=== PATIENT | female | born 1990 | race Hispanic/Latino ===

== ENCOUNTER 2017-04-16 17:55 | Emergency (ER) | payer OTHER ==
[~2017-04-16] VITALS: Ht 152.4 cm; Wt 49.4 kg
[2017-04-16] MEDS ORDERED: IBUPROFEN 600 MG TAB PO STA (18:34)
--- NOTE | 2017-04-16 19:18 | Diagnostic Imaging Report ---
Two view chest x-ray INDICATION: Cough, chest pain COMPARISON: None. FINDINGS: The cardiomediastinal silhouette is normal. There is no evidence of hilar lymphadenopathy. The pulmonary vascular markings are normal. There is no evidence of focal consolidation or pleural effusion. Evaluation of the osseous structures demonstrates no focal abnormality. IMPRESSION: No active cardiopulmonary disease. Signed by: Dr. Jean Monroy MD on 04/16/2017 7:15 PM
[2017-04-16 19:23] LABS: STREPTOCOCCUS GRP A ANTIGEN NEGATIVE (NEGATIVE)
[2017-04-16 19:38] LABS: INFLUENZAE A&B ANTIGEN (RAPID) NEGATIVE (NEGATIVE)
== END 2017-04-16 21:33 | disposition home or self-care (01) ==
LOC: ER 17:55
DX: R50.9 Fever, unspecified (principal); R05 Cough; J20.9 Acute bronchitis, unspecified
CPT/HCPCS: 71020; 83518; 87070; 87400; 93005; 99283

== ENCOUNTER 2018-04-12 21:16 | Emergency (ER) | payer OTHER ==
[~2018-04-12] VITALS: Ht 152.4 cm; Wt 49.4 kg
--- OUTSIDE RECORDS SUMMARY | 2018-04-12 21:18 | XMS REPORT ---
Author Author [facility] Address Unknown Phone Unavailable Care Team Providers Care Project Eng Name Role Phone Ernesto GALLO Unavailable Unavailable Problems This patient has no known problems. Allergies, Adverse Reactions, Alerts This patient has no known allergies or adverse reactions. Medications This patient has no known medications. Results Test Description Test Time Test Comments Text Results Atomic Results Result Comments CHEST 2 VIEWS [place] [address] Patient Name: DIMITRY BURRIS MR #: [id number] : 1990 Age/Sex: 27/F Req #: [id number] Adm Physician: Ordered by: MELBA GALLO MD Report #: [id number] Location: ER Room/Bed: Procedure: [id number] DX/CHEST 2 VIEWS Exam Date: 04/16/17 Exam Time: 1844 REPORT STATUS: Signed Two view chest x-ray INDICATION: Cough, chest pain COMPARISON: None. FINDINGS: The cardiomediastinal silhouette is normal. There is no evidence of hilar lymphadenopathy. The pulmonary vascular markings are normal. There is no evidence of focal consolidation or pleural effusion. Evaluation of the osseous structures demonstrates no focal abnormality. IMPRESSION: No active cardiopulmonary disease. Signed by: Dr. Juan Carlos Monroy MD on 04/16/2017 7:15 PM Dictated By: JUANC ARLOS MONROY MD 14 Transcribed By: AURA on 04/16/171914 COPY TO: MELBA GALLO MD
--- OUTSIDE RECORDS SUMMARY | 2018-04-12 21:18 | XMS REPORT | Clinical Summary ---
Author Author [facility] Address Unknown Phone Unavailable Care Team Providers Care Staff Submarine Warfare Officer Name Role Phone Berta Phillips MD PCP Unavailable Allergies Comments Active Allergy Reactions Severity Noted Date Penicillins Hives 12/11/2013 Medications End Date Status Medication Sig Dispensed Refills Start Date Active [id number] Take 1 tablet 12 0.18/0.215/0.25 mg-25 mcg by mouth 8 per tablet daily. Active valACYclovir (VALTREX) Take 500 mg 0 500 MG tablet by mouth as needed. 03/12/2019 Active omeprazole OTC (PriLOSEC Take 1 tablet 90 tablet 1 OTC) 20 MG EC tablet (20 mg total) 8 by mouth daily. 06/25/2018 Active fluticasone (FLONASE) 50 2 sprays (100 16 g 3 mcg/actuation nasal spray mcg total) by 8 Each Nare route daily for 90 days. 08/16/2017 azithromycin (ZITHROMAX) Take 2 2 tablet 0 500 MG tablet tablets 8 (1,000 mg total) by mouth once for 1 dose. 10/10/2017 azithromycin (ZITHROMAX) Take 2 6 tablet 0 250 MG tablet tablets the 8 first day, then 1 tablet daily for 4 days. 12/03/2017 Discontinued valACYclovir (VALTREX) Take 2 4 tablet 3 1000 MG tablet tablets 8 (2,000 mg total) by mouth 2 (two) times a day for 2 doses. 12/10/2017 Discontinued valACYclovir (VALTREX) Take 2 12 tablet 3 1000 MG tablet tablets 8 (2,000 mg total) by mouth 2 (two) times a day for 2 doses. 12/08/2017 acyclovir (ZOVIRAX) 5 % Apply 15 g 1 ointment topically 8 every 3 (three) hours for 5 days. 12/11/2017 valACYclovir (VALTREX) Take 2 12 tablet 3 1000 MG tablet tablets 8 (2,000 mg total) by mouth 2 (two) times a day for 2 doses. 03/27/2018 Discontinued fluticasone (FLONASE) 50 2 sprays (100 16 g 11 mcg/actuation nasal spray mcg total) by 8 Each Nare route daily. Active Problems Problem Noted Date Oral ulcer 12/05/2017 Recurrent herpes labialis 12/05/2017 Lightheadedness 10/18/2016 Generalized weakness 10/18/2016 Non-traumatic rhabdomyolysis 10/18/2016 Encounters Care Team Description Date Type Specialty Ainsley Bellamy MA 03/27/2018 Refill Internal Medicine Berta Phillips MD Viral URI with cough (Primary Dx); Amenorrhea; Epigastric pain; Gastroesophageal reflux disease with esophagitis; Bloating 03/12/2018 Office Visit Internal Medicine Berta Phillips MD 03/12/2018 Telephone Internal Medicine Berta Phillips MD Sore throat (Primary Dx) 01/01/2018 Office Visit Internal Berta Bill MD 12/10/2017 Orders Only Internal Berta Bill MD 12/10/2017 Refill Internal Medicine Lyubov Cody MD Recurrent herpes labialis (Primary Dx) 12/03/2017 Office Visit Internal Berta Bill MD 12/03/2017 Orders Only Internal Medicine Berta Phillips MD 12/03/2017 Orders Only Internal Medicine Berta Phillips MD 12/03/2017 Telephone Internal Medicine Berta Phillips MD Sore throat (Primary Dx); Strep throat 10/06/2017 Office Visit Internal Berta Bill MD 10/06/2017 Telephone Internal Berta Bill MD 08/16/2017 Orders Only Internal Medicine Berta Phillips MD Routine general medical examination at a health care facility (Primary Dx); Anemia, unspecified type; Fatigue, unspecified type; Exposure to communicable disease; Elevated blood pressure reading without diagnosis of hypertension; KAYLA (generalized anxiety disorder) 08/12/2017 Office Visit Internal Medicine Monique Sanchez RN 04/24/2017 Telephone Internal Medicine after 04/11/2017 Immunizations Name Dates Previously Given Next Due Influenza Trivalent 12/13/2016 Tdap 04/14/2014 Family History Medical History Relation Name Comments Asthma Brother Heart disease Father no [place] Hypertension Father Diabetes Maternal Grandfather Diabetes Maternal Grandmother Kidney disease Maternal Grandmother Asthma Mother Hypertension Mother Asthma Sister Asthma Sister Breast cancer Neg Hx Colon cancer Neg Hx Relation Name Status Comments Brother Father Maternal Grandfather Maternal Grandmother Mother Alive Sister Sister Social History Date Tobacco Use Types Packs/Day Years Used Never Smoker Smokeless Tobacco: Never Used Alcohol Use Drinks/Week oz/Week Comments Yes occasional- once a month Sex Assigned at Date Recorded Not on file Industry Job Start Date Occupation Not on file Not on file Not on file Travel End Travel History Travel Start No recent travel history available. Last Filed Vital Signs Time Taken Vital Sign Reading 03/12/2018 1:31 PM [employer] Blood Pressure 117/84 03/12/2018 1:31 PM [employer] Pulse 86 03/12/2018 1:31 PM [employer] Temperature 36.8 C (98.2 F) 12/03/2017 3:05 PM CDT Respiratory Rate 18 03/12/2018 1:31 PM [employer] Oxygen Saturation 99% - Inhaled Oxygen - Concentration 12/03/2017 3:05 PM CDT Weight 55.8 kg (123 lb) 03/12/2018 1:31 PM [employer] Height 152.4 cm (5') 12/03/2017 3:05 PM CDT Body Mass Index 24.02 Plan of Treatment Health Maintenance Due Date Last Done Comments CERVICAL CANCER SCREENING 2013 INFLUENZA VACCINE 11/12/2017 12/13/2016 Procedures Comments Procedure Name Priority Date/Time Associated Diagnosis POC , URINE Routine 03/12/2018 Amenorrhea 1:51 PM [employer] POCT INFLUENZA A/B Routine 03/12/2018 Viral URI with cough 1:51 PM [employer] POCT RAPID STREP A Routine 01/01/2018 Sore throat 12:18 PM CDT POCT RAPID STREP A Routine 10/06/2017 Sore throat 10:44 AM CDT CHLAMYDIA/GC, EVE Routine 08/12/2017 1:34 PM CDT MICROSCOPIC EXAMINATION Routine 08/12/2017 1:34 PM CDT HIV 1/2 ANTIGEN/ANTIBODY, Routine 08/12/2017 Routine general medical FOURTH GENERATION W/RFL 1:34 PM CDT examination at a health care facility Exposure to communicable disease URINALYSIS, AUTOMATED Routine 08/12/2017 Routine general medical WITH MICROSCOPY 1:34 PM CDT examination at a health care facility TSH REFLEX TO T4F Routine 08/12/2017 Routine general medical 1:34 PM CDT examination at a health care facility Fatigue, unspecified type HEMOGLOBIN A1C Routine 08/12/2017 Routine general medical 1:34 PM CDT examination at a health care facility LIPID PANEL Routine 08/12/2017 Routine general medical 1:34 PM CDT examination at a health care facility COMPREHENSIVE METABOLIC Routine 08/12/2017 Routine general medical PANEL 1:34 PM CDT examination at a health care facility Fatigue, unspecified type CBC WITH PLATELET AND Routine 08/12/2017 Routine general medical DIFFERENTIAL 1:34 PM CDT examination at a health care facility Anemia, unspecified type Fatigue, unspecified type after 04/11/2017 Results * POC Influenza A/B (03/12/2018 1:51 PM [employer]) Rapid Influenza A Ag neg Rapid Influenza B Ag neg Specimen Swab * POC , urine (03/12/2018 1:51 PM [employer]) test urine, POC Negative QC done Yes Specimen Urine * POC rapid strep A (01/01/2018 12:18 PM CDT) Only the most recent of 2 results within the time period is included. Rapid strep A antigen Negative Negative result Specimen Swab * TSH reflex to T4 (08/12/2017 1:34 PM CDT) TSH 1.160 0.450 - 4.500 uIU/mL [facility] Specimen Blood Narrative Performed At Performed at:[address] [place], [place] [id number] Heel Sewer: Mikey White MD, Phone:[phone] Performing Organization Address [facility] Phone Number [facility] * Microscopic Examination (08/12/2017 1:34 PM CDT) WBC, UA 0-5 0 - 5 /hpf [facility] RBC, UA 0-2 0 - 2 /hpf [facility] Epithelial cells (non >10 (A) 0 - 10 /hpf [facility] renal) Mucus, UA Present Not Estab. [facility] Bacteria, UA Few None seen/Few [facility] Narrative Performed At Performed at:[address] [place], [place] [id number] Heel Sewer: Mikey White MD, Phone:[phone] Performing Organization Address [facility] Phone Number [facility] * HIV 1/2 ANTIGEN/ANTIBODY, FOURTH GENERATION W/RFL (08/12/2017 1:34 PM CDT) HIV AG/AB 4th gen Non Reactive Non Reactive [facility] Narrative Performed At Performed at:[address] [place] [id number] Heel Sewer: Mikey White MD, Phone:[phone] Performing Organization Address [facility] Phone Number [facility] * Chlamydia/GC, EVE (08/12/2017 1:34 PM CDT) Chlamydia trachomatis, Positive (A) Negative [facility] EVE Neisseria gonorrhoeae, Negative Negative [facility] EVE Narrative Performed At Performed at:[address] [place] [address], [id number] Heel Sewer: Anna Hawkins MD, Phone:[phone] Performing Organization Address [facility] Phone Number [facility] * Urinalysis, automated with microscopy (08/12/2017 1:34 PM CDT) Specific gravity, urine >=1.030 (A) 1.005 - 1.030 [facility] pH, urine 6.0 5.0 - 7.5 [facility] Color, UA Yellow Yellow [facility] Appearance Clear Clear [facility] WBC esterase, urine Negative Negative [facility] Protein, UA Negative Negative/Trace [facility] Glucose, urine Negative Negative [facility] Ketones, UA Negative Negative [facility] Occult blood, urine Negative Negative [facility] Bilirubin, UA Negative Negative [facility] Urobilinogen, UA 0.2 0.2 - 1.0 mg/dL [facility] Nitrite, UA Negative Negative [facility] Microscopic examination CommentComment: Microscopic [facility] follows if indicated. Microscopic examination See below:Comment: Microscopic [facility] was indicated and was performed. Specimen Urine Narrative Performed At [facility]formed at: [facility] [address] [place], [id number] Heel Sewer: Mikey White MD, Phone:[phone] Performing Organization Address City/State/Zipcode Phone Number [facility] * CBC with platelet and differential (08/12/2017 1:34 PM CDT) WBC 7.2 3.4 - 10.8 x10E3/uL [facility] RBC 3.98 3.77 - 5.28 x10E6/uL [facility] HGB 12.4 11.1 - 15.9 g/dL [facility] HCT 38.6 34.0 - 46.6 % [facility] MCV 97 79 - 97 fL [facility] MCH 31.2 26.6 - 33.0 pg [facility] MCHC 32.1 31.5 - 35.7 g/dL [facility] RDW 13.2 12.3 - 15.4 % [facility] Platelet count 272 150 - 379 x10E3/uL [facility] Neutrophils 54 Not Estab. % [facility] Lymphocytes 37 Not Estab. % [facility] Monocytes 7 Not Estab. % [facility] Eosinophils 2 Not Estab. % [facility] Basophils 0 Not Estab. % [facility] Neutrophils, absolute 4.0 1.4 - 7.0 x10E3/uL [facility] Lymphocytes, absolute 2.6 0.7 - 3.1 x10E3/uL [facility] Monocytes, absolute 0.5 0.1 - 0.9 x10E3/uL [facility] Eosinophils, absolute 0.1 0.0 - 0.4 x10E3/uL [facility] Basophils, absolute 0.0 0.0 - 0.2 x10E3/uL [facility] Immature granulocytes 0 Not Estab. % [facility] Immature grans (abs) 0.0 0.0 - 0.1 x10E3/uL [facility] Specimen Blood Narrative Performed At Performed at: [facility] [id number] Heel Sewer: Mikey White MD, Phone:[phone] Performing Organization Address [facility] Phone Number [facility] * Hemoglobin A1c (08/12/2017 1:34 PM CDT) Hemoglobin A1C 5.5 4.8 - 5.6 % [facility] Comment: Pre-diabetes: 5.7 - 6.4 Diabetes: >6.4 Glycemic control for adults with diabetes: <7.0 Specimen Blood Narrative Performed At [facility]formed [facility]: [facility] [id number] Heel Sewer: Mikey White MD, Phone:[phone] Performing Organization Address [facility] Phone Number [facility] * Lipid panel (08/12/2017 1:34 PM CDT) Cholesterol 145 100 - 199 mg/dL [facility] Triglycerides 92 0 - 149 mg/dL [facility] HDL cholesterol 41 >39 mg/dL [facility] VLDL cholesterol heather 18 5 - 40 mg/dL [facility] LDL cholesterol 86 0 - 99 mg/dL [facility] calculated Non-HDL cholesterol 104 0 - 129 mg/dL [facility] Specimen Blood Narrative Performed At Performed at: [id number] Heel Sewer: Mikey White MD, Phone:[phone] Performing Organization Address [facility] Phone Number [facility] * Comprehensive metabolic panel (08/12/2017 1:34 PM CDT) Glucose 99 65 - 99 mg/dL [facility] BUN, whole blood 18 6 - 20 mg/dL [facility] Creatinine 0.86 0.57 - 1.00 mg/dL [facility] EGFR Non-Afr. Macanese 94 >59 mL/min/1.73 [facility] EGFR 109 >59 mL/min/1.73 [facility] BUN/creatinine ratio 21 9 - 23 [facility] Sodium 144 134 - 144 mmol/L [facility] Potassium 4.5 3.5 - 5.2 mmol/L [facility] Chloride 106 96 - 106 mmol/L [facility] CO2 21 18 - 29 mmol/L [facility] Calcium 9.4 8.7 - 10.2 mg/dL [facility] Protein 7.2 6.0 - 8.5 g/dL [facility] Albumin, S 4.4 3.5 - 5.5 g/dL [facility] Globulin, total 2.8 1.5 - 4.5 g/dL [facility] Albumin/globulin ratio 1.6 1.2 - 2.2 [facility] Total bilirubin 0.3 0.0 - 1.2 mg/dL [facility] Alkaline phosphatase 54 39 - 117 IU/L [facility] AST 15 0 - 40 IU/L [facility] ALT 16 0 - 32 IU/L [facility] Specimen Blood Narrative Performed At Performed at:01 - [facility] [address], [id number] Heel Sewer: Mikey White MD, Phone:[phone] Performing Organization Address City/State/Zipcode Phone Number [facility] after 04/11/2017 Insurance Payer Benefit Subscriber ID Type Phone Address Plan / Group [facility] xxxxxxxxxxxx PPO [facility] THCARE CHOICE [facility] Advance Directives Patient has advance care planning documents on file. For more information, plelele e contact: Getachew Brumfield [address] [place] [address]
[2018-04-12] MEDS ORDERED: KETOROLAC TROMETHAMINE 60 MG/2 ML VIAL IM ONE (23:30)
--- NOTE | 2018-04-13 00:24 | Diagnostic Imaging Report ---
History: Migraine headache for 3 days Comparison studies: None Technique: Axial images were obtained from the skull base to the vertex. Coronal and sagittal reconstructions obtained from the axial data. Dose modulation, iterative reconstruction, and/or weight based adjustment of the mA/kV was utilized to reduce the radiation dose to as low as reasonably achievable. Findings: Scalp/skull: No abnormalities. No fractures, blastic or lytic lesions. Extra-axial spaces: No masses. No fluid collections. Brain sulci: Appropriate for age. Ventricles: Normal in size and configuration. No hydrocephalus. Parenchyma: No abnormal densities. No masses, hemorrhage, acute or chronic cortical vascular insults. Sellar/suprasellar region: No abnormalities Craniocervical junction: Patent foramen magnum. No Chiari one malformation. IMPRESSION: No abnormalities . Signed by: DR Delta Luo M.D. on 04/13/2018 12:21 AM
[2018-04-13 02:07] VITALS: BP 142/99
== END 2018-04-13 02:10 | disposition home or self-care (01) ==
LOC: ER 21:16
DX: G43.011 Migraine without aura, intractable, with status migrainosus (principal); R07.89 Other chest pain
CPT/HCPCS: 70450; 93005; 99283; J1885